=== PATIENT | male | born 1960 | race Caucasian/White ===

== ENCOUNTER 2017-01-15 12:18 | Emergency (ER) | payer OTHER ==
--- NOTE | 2017-01-15 14:48 | UC ---
Lower Extremity/Ankle HPI - HPI Summary HPI Summary: PT WITH H/O LLE SUPERFICIAL PHLEBITIS IN 2013 COMES IN WITH 1 WEEK OF SIMILAR SX - ERYTHEMA, TENDERNESS, SWELLING AND IRRITATION OVER VARICOSITIES IN LEFT MEDIAL THIGH AND PROXIMAL LOWER LEG. NO FEVER, CP, SOB OR CALF TENDERNESS. - History of Current Complaint Chief Complaint: UCLowerExtremity Stated Complaint: SWOLLEN PAINFUL LEG Time Seen by Provider: 01/15/17 14:13 Hx Obtained From: Patient Onset/Duration: Gradual Onset, Lasting Weeks, Still Present Severity Initially: Mild Severity Currently: Mild Pain Intensity: 2 Pain Scale Used: 0-10 Numeric Aggravating Factor(s): Ambulation Able to Bear Weight: Yes - Allergies/Home Medications Allergies/Adverse Reactions: Allergies Allergy/AdvReac Type Severity Reaction Status Date / Time No Known Allergies Allergy Verified 01/15/17 13:01 Home Medications: Home Medications Aspirin Low Dose CHEW TAB* [Aspirin Low Dose TAB*] 81 mg PO DAILY 01/15/17 [ History Confirmed 01/15/17] Atenolol TAB* [Tenormin TAB* 50 MG] 75 mg PO DAILY 01/15/17 [History Confirmed 01/15/17] Hydrochlorothiazide TAB* [Hydrodiuril TAB*] 25 mg PO DAILY 01/15/17 [History Confirmed 01/15/17] Levothyroxine TAB* [Synthroid TAB*] 50 mcg PO DAILY 01/15/17 [History Confirmed 01/15/17] Lisinopril [Lisinopril 40 MG-] 40 mg PO DAILY 01/15/17 [History Confirmed ] Multiple Vitamins W/ Minerals [Multivitamin Men] 1 tab PO DAILY 01/15/17 [ History Confirmed 01/15/17] amLODIPine TAB* [Norvasc TAB*] 10 mg PO DAILY 01/15/17 [History Confirmed ] PMH/Surg Hx/FS Hx/Imm Hx - Additional Past Medical History Additional PMH: PHLEBITIS Cardiovascular History Of: Reports: Hypertension - Surgical History Surgical History: Yes Surgery Procedure, Year, and Place: R kidney removed, appy - Family History Known Family History: Negative: Blood Disorder - Social History Alcohol Use: Weekly Substance Use Type: None Smoking Status (MU): Never Smoked Tobacco Review of Systems Constitutional: Negative Skin: Other - ERYTHEMA Respiratory: Negative Cardiovascular: Negative Gastrointestinal: Negative Musculoskeletal: Edema All Other Systems Reviewed And Are Negative: Yes Physical Exam Triage Information Reviewed: Yes Appearance: Well-Appearing, No Pain Distress, Well-Nourished Vital Signs: Initial Vital Signs Temp 98.2 F 01/15/17 12:51 Pulse 53 01/15/17 12:51 Resp 16 01/15/17 12:51 BP 151/89 01/15/17 12:51 Pulse Ox 98 01/15/17 12:51 Vital Signs Reviewed: Yes Eyes: Positive: Conjunctiva Clear ENT: Positive: Hearing grossly normal Neck: Positive: Supple Respiratory Exam: Normal Cardiovascular Exam: Normal Abdomen Description: Positive: Soft Musculoskeletal: Positive: ROM Intact, Edema @ - LEFT LEG. CALF CIRCUMFERENCE 55CM RIGHT, 56.5CM LEFT, Other: - TENDER VARICOSITIES LEFT MEDIAL THIGH AND LEFT MEDIAL PROXIMAL LOWER LEG WITH OVERLYING ERYTHEMA Neurological: Positive: Alert Psychological: Positive: Age Appropriate Behavior Skin: Negative: rashes Lower Extremity Course/Dx - Course Course Of Treatment: TRANSFER CARE TO DR. MARCELINO - SHIFT CHANGE 2:40PM. WAITING FOR ULTRASOUND - Differential Dx/Diagnosis Provider Diagnoses: SUPERFICIAL PHLEBITIS LLE - Physician Notifications Discussed Patient Care With: DR. MARCELINO Time Discussed With Above Provider: 14:40 - TRANSFER CARE - SHIFT CHANGE Discharge - Discharge Plan Condition: Stable Disposition: HOME Additional Instructions: FOLLOW-UP WITH PCP IN [place]. TO ER WITHOUT FAIL IF YOU DEVELOP CHEST PAIN, SHORTNESS OF BREATH, FEVER, NAUSEA OR ANY OTHER CONCERNING SYMPTOMS.
--- NOTE | 2017-01-15 15:46 | RAD ---
INDICATION: LEFT lower extremity swelling and redness at the medial thigh. COMPARISON: None. TECHNIQUE: Livingston scale, color Doppler, and spectral analysis of the deep veins of the LEFT lower extremity. Vessel compression, phasicity, and augmentation assessed. REPORT: The LEFT common femoral, great saphenous, profunda femoral, femoral, popliteal, peroneal, and posterior tibial veins are patent. A noncompressible superficial vein representing a branch vessel of the great saphenous vein is visualized at the LEFT mid thigh extending to the mid calf consistent with superficial venous thrombosis. The thrombosed superficial vein measures up to 1.4 cm diameter. Associated surrounding dermal and subcutaneous edema. Small LEFT popliteal cyst visualized measuring up to 4.7 x 2.0 x 3.0 cm. Patency of the contralateral common femoral vein documented. IMPRESSION: 1. No evidence for LEFT lower extremity deep venous thrombosis. 2. Thrombosed superficial vein from the mid LEFT thigh to the mid calf. Surrounding soft tissue edema.
[2017-01-15 16:31] VITALS: BP 152/96
--- NOTE | 2017-02-22 09:44 | UC ---
Robbie Thorpe Billy, scribed for Elba Meyer DO on 01/15/17 at 1602 . Progress - Progress Note Progress Note: Patient signed out by Dr. Brown at shift change, disposition pending lower extremity ultrasound. Ultrasound results reviewed and discussed with the patient. Disposition: Discharge home. Condition: Stable. - Results/Orders Results/Orders: VL LOWER EXT VEINS LEFT IMPRESSION: 1. No evidence for LEFT lower extremity deep venous thrombosis. 2. Thrombosed superficial vein from the mid LEFT thigh to the mid calf. Surrounding soft tissue edema. The documentation as recorded by the [email or web address] cuevas Billy accurately reflects the service I personally performed and the decisions made by Betsy garcía Michelle A, DO.
== END 2017-01-15 16:48 | disposition home or self-care (01) ==
LOC: UCEAST 12:18
DX: I80.02 Phlebitis and thrombophlebitis of superficial vessels of left lower extremity (principal); I10 Essential (primary) hypertension; Z79.82 Long term (current) use of aspirin
CPT/HCPCS: 99211; G0463